=== PATIENT | female | born 1940 | race Caucasian/White ===

== ENCOUNTER 2020-11-21 15:33 | Emergency (ER) | payer MEDICARE, BC ==
[~2020-11-21] VITALS: Ht 160 cm; Wt 86.4 kg
[2020-11-21 15:51] VITALS: TEMP 96.9
[2020-11-21 16:35] LABS: BASO # 0.1 (0.0-0.2); BASO % 0.4 % (0.0-2.0); EOS # 0.2 (0.0-0.7); GRAN # 6.5 (1.4-6.5); GRAN % 52.9 % (42.2-75.2); HEMATOCRIT 40.1 % (37.0-47.0); HEMOGLOBIN 13.3 g/dl (12.5-16.0); LYMPH # 4.8 (1.2-3.4); LYMPH % 39.4 % (20.0-51.0); MEAN CELL VOLUME 91 fl (80.0-100.0); MEAN CORPUSCULAR HEMOGLOBIN 30 pg (27.0-31.0); MEAN CORPUSCULAR HGB CONC 33 g/dl (33.0-37.0); MEAN PLATELET VOLUME 10.2 fl (7.4-10.4); MONO # 0.6 (0.1-0.6); MONO % 4.9 % (1.7-9.3); PLATELET COUNT 290 K/mm3 (130-400); RED BLOOD COUNT 4.39 M/mm3 (4.10-5.30)
[2020-11-21 16:41] LABS: ALANINE AMINOTRANSFERASE 19 U/L (4-34); ALKALINE PHOSPHATASE 58 U/L (50-136); ANION GAP 11 mmol/L (7-16); AST,SGOT 20 U/L (15-37); BILIRUBIN,TOTAL 0.6 mg/dL (0.0-1.0); BLOOD UREA NITROGEN 35 mg/dL (7-17); CALCIUM 9.2 mg/dL (8.4-10.2); CARBON DIOXIDE 21 mmol/L (22-30); CHLORIDE 101 mmol/L (98-107); CREATININE, serum 1.03 (0.52-1.25); GLUCOSE 198 mg/dL (74-106); SODIUM 133 mmol/L (137-145); TOTAL PROTEIN 7.1 gm/dL (6.4-8.2)
[2020-11-21 16:53] LABS: COLLECTION METHOD CLEAN CATCH
[2020-11-21 16:54] LABS: TROPONIN-I < 0.012 ng/mL (0.000-0.035)
[2020-11-21 17:00] LABS: MUCOUS Present /lpf; PH 5 (5-8); SQUAMOUS EPITHELIAL 0-2 /hpf; URINE APPEARANCE Hazy; URINE BACTERIA None Seen /hpf; URINE BILIRUBIN Negative (NEGATIVE); URINE BLOOD Negative (NEGATIVE); URINE COLOR Amber; URINE GLUCOSE Negative (NEGATIVE); URINE KETONE Negative (NEGATIVE); URINE LEUKOCYTE ESTERASE 1+ (NEGATIVE); URINE NITRATE Negative (NEGATIVE); URINE PROTEIN(semi-quant) Negative (NEGATIVE); URINE UROBILINOGEN Negative (NEGATIVE)
[2020-11-21 17:01] LABS: C-REACTIVE PROTEIN 0.8 mg/dL (0.0-0.9)
[2020-11-21] MEDS ORDERED: LIPITOR 10MG10 MG PO (19:02)
[2020-11-21] MEDS ORDERED: FLEXERIL 1010 MG/TAB PO (19:02)
[2020-11-21] MEDS ORDERED: PRINIVIL5 MG PO (19:03)
[2020-11-21 19:44] VITALS: BP 125/55; PULSE 63
== END 2020-11-21 19:45 | disposition home or self-care (01) ==
LOC: COL.ER 15:33
PROVIDERS: Nurse Practitioner Primary Care
DX: E86.0 Dehydration (principal); I10 Essential (primary) hypertension; Z79.899 Other long term (current) drug therapy
CPT/HCPCS: J7030